=== PATIENT | female | born 1975 | race African-American/Black ===

== ENCOUNTER 2020-05-02 14:13 | Emergency (ER) | payer OTHER ==
[~2020-05-02] VITALS: Ht 162.6 cm; Wt 72.6 kg
[2020-05-02 14:28] VITALS: TEMP 97.5
[2020-05-02 15:14] LABS: PLATELET COUNT 326 K/uL (152-353)
[2020-05-02 15:21] LABS: POTASSIUM 4.3 mmol/L (3.6-5.2)
[2020-05-02 17:48] VITALS: BP 116/71
== END 2020-05-02 17:48 | disposition home or self-care (01) ==
LOC: ED 14:13
PROVIDERS: Family Medicine
DX: K29.60 Other gastritis without bleeding (principal); K21.9 Gastro-esophageal reflux disease without esophagitis; Z79.2 Long term (current) use of antibiotics
CPT/HCPCS: 80053; 81000; 81025; 85027; 99283

== ENCOUNTER 2020-06-10 22:20 | Emergency (ER) | payer OTHER ==
[~2020-06-10] VITALS: Ht 162.6 cm; Wt 72.6 kg
[2020-06-10 23:54] VITALS: BP 128/88; TEMP 98.2
== END 2020-06-10 23:54 | disposition home or self-care (01) ==
LOC: ED 22:54
DX: J01.80 Other acute sinusitis (principal)
CPT/HCPCS: 81025; 99283